=== PATIENT | male | born 1950 | race Caucasian/White ===

== ENCOUNTER → 2019-10-18 | Outpatient (CLI) | payer OTHER | END | disposition home or self-care (01) | LOC: LAB SHORT 12:41 → PLD 12:41 | DX: L82.1 Other seborrheic keratosis (principal) | CPT/HCPCS: 88305 ==

== ENCOUNTER → 2020-12-25 | Outpatient (CLI) | payer MEDICARE | LOC: LAB 12:00 → LAB SHORT 12:00 | DX: R10.30 Lower abdominal pain, unspecified (principal); R10.9 Unspecified abdominal pain; R97.20 Elevated prostate specific antigen [PSA]; R31.29 Other microscopic hematuria; K63.5 Polyp of colon; K92.1 Melena | CPT/HCPCS: 87086 ==